=== PATIENT | female | born 1975 | race Caucasian/White ===

== ENCOUNTER 2017-07-14 13:42 | Emergency (ER) | payer MEDICARE ==
[~2017-07-14] VITALS: Ht 167.6 cm; Wt 63.5 kg
[~2017-07-14 13:42] MED LIST: ATIVAN0.5 MG ORAL; DIPHENHYDRAMINE25 M1 ORAL; NITROFURANTOIN100 M2 ORAL; PROZAC10 MG ORAL; TRAMADOL HCL50 MG ORAL; XOPENEX HFA15 GM IH
[2017-07-14 14:42] LABS: APPEARANCE,URINE CLEAR; KETONES,URINE NEGATIVE (NEGATIVE); LEUKOCYTE ESTERASE ,URINE NEGATIVE (NEGATIVE); NITRITE,URINE NEGATIVE (NEGATIVE); PH,URINE 7 (4.5-8.0); PROTEIN,URINE NEGATIVE (NEGATIVE); UROBILINOGEN,URINE NORMAL MG/DL (0.0-1.0)
[2017-07-14] MEDS ORDERED: BENADRYL25 MG ORAL (14:54)
[2017-07-14] MEDS ORDERED: PREDNISONE20 MG ORAL (14:54)
[2017-07-14] MEDS ORDERED: PROZAC10 MG ORAL (14:54)
[2017-07-14 15:10] VITALS: BP 110/72
--- NOTE | 2017-07-14 22:52 | Emergency Room Report ---
History of Present Illness General Chief Complaint: Allergic Reaction Source: Patient Present Illness HPI The patient is a 41-year-old female presenting for medication refill and possible allergic reaction. She states that she was taking Bactrim for a UTI and finished a course. She then began to develop redness and itching on her skin 2 days ago. She took Benadryl which did help. She denies any known allergy to Bactrim or sulfa. She denies any pain. She is asking for refill of Prozac as she has not been able to follow up with her primary doctor or psychiatrist. She has been out of this medication for 2 days. She denies any other symptoms Allergies: Coded Allergies: IBUPROFEN (Verified Allergy, Mild, 01/05/14) LIGHTHEADNESS ASPIRIN (Verified Allergy, Unknown, 07/14/17) SULFAMETHOXAZOLE (Verified Allergy, Unknown, 07/14/17) TRIMETHOPRIM (Verified Allergy, Unknown, 07/14/17) Patient History Past Medical History: see triage record Pertinent Family History: none Last Menstrual Period: 06/30/2017 Reviewed Nursing Documentation: PMH: Agreed, PSxH: Agreed Nursing Documentation-PMH Past Medical History: No History, Except For Hx Cardiac Problems: No Hx Hypertension: No Hx Pacemaker: No Hx Asthma: No Hx COPD: No Hx Diabetes: Yes - REACTIVE HYPOGLYCEMIA Hx Cancer: Yes - SKIN CANCER Hx Gastrointestinal Problems: No Hx Dialysis: No Hx Neurological Problems: No Hx Cerebrovascular Accident: No Hx Seizures: No Review of Systems All Other Systems: negative except mentioned in HPI Physical Exam Vital Signs Date Time Temp Pulse Resp B/P (MAP) Pulse Ox O2 Delivery O2 Flow Rate FiO2 07/14/17 13:48 97.2 79 14 107/69 99 Room Air Sp02 EP Interpretation: reviewed, normal General Appearance: no apparent distress, alert, GCS 15, non-toxic Head: normocephalic, atraumatic Eyes: bilateral eye normal inspection, bilateral eye PERRL ENT: hearing grossly normal, normal pharynx, no angioedema, normal voice Neck: full range of motion, supple/symm/no masses Respiratory: chest non-tender, lungs clear, normal breath sounds, speaking full sentences Cardiovascular #1: regular rate, rhythm, no edema Gastrointestinal: normal bowel sounds, non tender, soft, non-distended, no guarding, no rebound Musculoskeletal: back normal, gait/station normal, normal range of motion, non- tender Neurologic: alert, oriented x3, responsive, motor strength/tone normal, sensory intact, speech normal Psychiatric: judgement/insight normal, memory normal, mood/affect normal, no suicidal/homicidal ideation Skin: normal color, no rash, warm/dry, well hydrated Lymphatic: no adenopathy Medical Decision Making PA Attestation Dr. Laughlin is my supervising physician. Patient management was discussed with my supervising physician Diagnostic Impression: Primary Impression: Depression Qualified Codes: F32.9 - Major depressive disorder, single episode, unspecified Additional Impression: Medication reaction Qualified Codes: T88.7XXA - Unspecified adverse effect of drug or medicament, initial encounter ER Course The patient is a 41-year-old female presenting for medication refill and possible allergic reaction DDx considered include: allergic reaction, anaphylaxis, anxiety, depression, among others PE: Vitals stable. NAD HEENT unremarkable. Oropharynx patent. No angioedema. Lungs CTA bilat RRR Skin warm and dry. No erythema. No urticaria. No lesions seen. The patient is given her refill of prozac and will be treated with benadryl and prednisone. ER precautions given Last Vital Signs Date Time Temp Pulse Resp B/P (MAP) Pulse Ox O2 Delivery O2 Flow Rate FiO2 07/14/17 15:10 98.2 84 20 110/72 96 Room Air Status: improved Disposition: HOME, SELF-CARE Condition: Improved Scripts Prednisone* (PREDNISONE*) 20 Mg Tablet 20 MG ORAL DAILY, #5 TAB 0 Refills Prov: TERZIAN,LIYAH P.A. 07/14/17 Diphenhydramine Hcl* (BENADRYL*) 25 Mg Capsule 25 MG ORAL Q6H Y for Itching, #20 CAP Prov: TERZIAN,LIYAH P.A. 07/14/17 Fluoxetine Hcl* (PROZAC*) 10 Mg Capsule 10 MG ORAL DAILY, #30 CAP Prov: TERZIAN,LIYAH P.A. 07/14/17 Referrals: NOT CHOSEN [facility]/MD,REFERRING (PCP) Patient Instructions: Drug Allergy Additional Instructions: I discussed my findings with the patient. All questions and concerns have been answered. Treatment and medication compliance have been addressed. I advised the patient that they need to follow up with PMD in 3-5 days. Return to ED if symptoms worsen, new symptoms arise, or if needed for any reason. Patient verbalized understanding of discharge instructions. LIYAH ARAYA. Jul 14, 2017 22:52
== END 2017-07-14 15:10 | disposition home or self-care (01) ==
LOC: EMR 14:23
DX: L29.9 Pruritus, unspecified (principal); T37.0X5A Adverse effect of sulfonamides, initial encounter; E11.9 Type 2 diabetes mellitus without complications; Z88.6 Allergy status to analgesic agent; Z85.828 Personal history of other malignant neoplasm of skin
CPT/HCPCS: 81003; 81025; 99284

== ENCOUNTER 2018-02-20 21:18 | Emergency (ER) | payer MEDICARE, OTHER ==
[~2018-02-20] VITALS: Ht 167.6 cm; Wt 63.5 kg
[~2018-02-20 21:18] MED LIST changes: +BENADRYL25 MG ORAL; +PREDNISONE20 MG ORAL
[2018-02-20] MEDS ORDERED: ARMOUR THYROID30 MG ORAL (21:27)
[2018-02-20 21:30] VITALS: BP 123/78
[2018-02-20 22:13] VITALS: BP 0/0
--- NOTE | 2018-02-21 05:03 | Emergency Room Report ---
History of Present Illness General Chief Complaint: Female Urogenital Problems Source: Patient Present Illness HPI 42-year-old female presents ED for evaluation. Complaining of burning urination for the last 2 weeks. Concerned about STD. Denies any discharge. denies any fevers or chills. Denies flank pain. No other aggravating relieving factors. Denies any other associated symptoms Allergies: Coded Allergies: IBUPROFEN (Verified Allergy, Mild, 01/05/14) LIGHTHEADNESS ASPIRIN (Verified Allergy, Unknown, 07/14/17) SULFAMETHOXAZOLE (Verified Allergy, Unknown, 07/14/17) TRIMETHOPRIM (Verified Allergy, Unknown, 07/14/17) Patient History Past Medical History: none Past Surgical History: none Pertinent Family History: none Social History: Denies: smoking, alcohol use, drug use Last Menstrual Period: 02/06/18 Now: No Immunizations: UTD Reviewed Nursing Documentation: PMH: Agreed; PSxH: Agreed Nursing Documentation-PMH Hx Hypertension: No Hx Pacemaker: No Hx Asthma: No Hx COPD: No Hx Diabetes: Yes - REACTIVE HYPOGLYCEMIA Hx Cancer: Yes - SKIN CANCER Hx Gastrointestinal Problems: No Hx Dialysis: No Hx Neurological Problems: No Hx Cerebrovascular Accident: No Hx Seizures: No Review of Systems All Other Systems: negative except mentioned in HPI Physical Exam Vital Signs Date Time Temp Pulse Resp B/P (MAP) Pulse Ox O2 Delivery O2 Flow Rate FiO2 02/20/18 21:23 98.2 95 15 123/78 97 Room Air 98.2 Sp02 EP Interpretation: reviewed, normal General Appearance: no apparent distress, alert, GCS 15, non-toxic Head: normocephalic, atraumatic Eyes: bilateral eye normal inspection, bilateral eye PERRL ENT: hearing grossly normal, normal pharynx, no angioedema, normal voice Neck: full range of motion, supple/symm/no masses Respiratory: chest non-tender, lungs clear, normal breath sounds, speaking full sentences Cardiovascular #1: regular rate, rhythm, no edema Cardiovascular #2: 2+ carotid (R), 2+ carotid (L), 2+ radial (R), 2+ radial (L) , 2+ dorsalis pedis (R), 2+ dorsalis pedis (L) Gastrointestinal: normal bowel sounds, non tender, soft, non-distended, no guarding, no rebound Rectal: deferred Genitourinary: normal inspection, no CVA tenderness Musculoskeletal: back normal, gait/station normal, normal range of motion, non- tender Neurologic: alert, oriented x3, responsive, motor strength/tone normal, sensory intact, speech normal Psychiatric: judgement/insight normal, memory normal, mood/affect normal, no suicidal/homicidal ideation Reflexes: 3+ bicep (R), 3+ bicep (L), 3+ tricep (R), 3+ tricep (L), 3+ knee (R) , 3+ knee (L) Skin: normal color, no rash, warm/dry, well hydrated Lymphatic: no adenopathy Medical Decision Making Diagnostic Impression: Primary Impression: Dysuria ER Course Hospital Course 42-year-old female presents ED with dysuria. history of unprotected sex Differential diagnoses include: trichimonas, gonorrhea, chlamydia Clinical course Patient placed on stretcher. After initial history and physical I discussed that we can treat patient clinically for STI. However patient does need to follow-up with STD clinics for official testing Patient states she prefers to wait for treatment until she gets tested. States she will go to clinic today. Is refusing treatment at this time. Diagnosis - dysuria Stable and discharged home. Instructed to followup with PMD. Return to ED if symptoms recur or worsen Last Vital Signs Date Time Temp Pulse Resp B/P (MAP) Pulse Ox O2 Delivery O2 Flow Rate FiO2 02/20/18 22:13 0/0 02/20/18 21:30 98.2 91 15 97 Room Air 98.2 Status: improved Disposition: HOME, SELF-CARE Condition: Stable Referrals: NOT CHOSEN [facility]/,REFERRING (PCP) Patient Instructions: VaginiEran Vora MD Feb 21, 2018 05:03
== END 2018-02-20 22:13 | disposition home or self-care (01) ==
LOC: EMR 21:40
DX: R30.0 Dysuria (principal); E11.9 Type 2 diabetes mellitus without complications; Z85.828 Personal history of other malignant neoplasm of skin; Z88.2 Allergy status to sulfonamides; Z88.6 Allergy status to analgesic agent
CPT/HCPCS: 99282

== ENCOUNTER 2019-02-20 11:08 | Emergency (ER) | payer OTHER ==
[~2019-02-20] VITALS: Ht 167.6 cm; Wt 59.0 kg
[~2019-02-20 11:08] MED LIST changes: +ARMOUR THYROID30 MG ORAL
--- NOTE | 2019-02-20 11:24 | NUR ---
ED Nurse Note: PT FROM HOME CAME IN DUE TO SORE THROAT, CHILLS AND 3 EPISODES OF VOMITING YESTERDAY. DENIES ABD PAIN. NO S/S OF DEHYDRATION. AAO X4, AND AMBULATORY.
--- NOTE | 2019-02-20 12:02 | NUR ---
ED Nurse Note: COLLECTED URINE THEN SENT.
[2019-02-20 12:07] LABS: APPEARANCE,URINE CLEAR; BILIRUBIN, URINE NEGATIVE (NEGATIVE); GLUCOSE, URINE (UA) NEGATIVE (NEGATIVE); KETONES,URINE NEGATIVE (NEGATIVE); LEUKOCYTE ESTERASE ,URINE 1+ (NEGATIVE); NITRITE,URINE NEGATIVE (NEGATIVE); PH,URINE 6 (4.5-8.0); PROTEIN,URINE 1+ (NEGATIVE); UROBILINOGEN,URINE 1 MG/DL (0.0-1.0)
[2019-02-20 12:15] LABS: COLOR,URINE YELLOW
[2019-02-20] MEDS ORDERED: Lidocaine 2% Visc 15ml soln ORAL ONE (12:30)
[2019-02-20] MEDS ORDERED: ZITHROMAX250 MG ORAL (12:32)
[2019-02-20] MEDS ORDERED: IBUPROFEN600 MG ORAL (12:32)
[2019-02-20 12:58] VITALS: BP 120/80
[2019-02-20 12:59] VITALS: BP 91/56
--- NOTE | 2019-02-20 13:02 | NUR ---
discharged home with instruction and rx folloe up with pmd verbalize understanding of the aci
[2019-02-21] MEDS ORDERED: LEVOTHYROXINE75 MCG ORAL (11:31)
[2019-02-21] MEDS ORDERED: COLACE100 MG ORAL (12:11)
[2019-02-21] MEDS ORDERED: ANUSOL-HC25 MG RECTAL (12:11)
--- NOTE | 2019-02-26 21:59 | Emergency Room Report ---
History of Present Illness General Chief Complaint: Vomiting Source: Medical Record Present Illness Allergies: Coded Allergies: PENICILLINS (Verified Allergy, Unknown, rash, 02/20/19) SULFAMETHOXAZOLE (Verified Allergy, Unknown, 07/14/17) TRIMETHOPRIM (Verified Allergy, Unknown, 07/14/17) Patient History Last Menstrual Period: 02/04/19 Nursing Documentation-PM Past Medical History: No History, Except For Hx Hypertension: No Hx Pacemaker: No Hx Asthma: No Hx COPD: No Hx Diabetes: Yes - REACTIVE HYPOGLYCEMIA Hx Cancer: Yes - SKIN CANCER Hx Gastrointestinal Problems: No Hx Dialysis: No Hx Neurological Problems: No Hx Cerebrovascular Accident: No Hx Seizures: No Medical Decision Making Diagnostic Impression: Primary Impression: Tonsillitis with exudate Status: improved Disposition: HOME, SELF-CARE Condition: Stable Scripts Azithromycin* (ZITHROMAX*) 250 Mg Tablet 250 MG ORAL DAILY, #6 TAB 0 Refills Take two tables once daily for 1 day, then one tablet once daily for 4 days. Prov: Doug Laughlin MD 02/20/19 Ibuprofen* (MOTRIN*) 600 Mg Tablet 600 MG ORAL Q8H PRN for For Pain, #30 TAB 0 Refills Prov: Doug Laughlin MD 02/20/19 Referrals: NON PHYSICIAN (PCP) Patient Instructions: Tonsillitis, [id number] Additional Instructions: Follow up with your doctor in 2-3 days. Return if worse. Doug Laughlin MD Feb 26, 2019 21:59
== END 2019-02-20 13:03 | disposition home or self-care (01) ==
LOC: EMR 11:58
DX: J03.90 Acute tonsillitis, unspecified (principal); Z85.828 Personal history of other malignant neoplasm of skin; Z88.0 Allergy status to penicillin; Z88.2 Allergy status to sulfonamides; Z88.8 Allergy status to other drugs, medicaments and biological substances
CPT/HCPCS: 81003; 81025; 99283

== ENCOUNTER 2019-02-21 11:10 | Emergency (ER) | payer OTHER ==
[~2019-02-21] VITALS: Ht 167.6 cm; Wt 61.2 kg
[~2019-02-21 11:10] MED LIST changes: +IBUPROFEN600 MG ORAL; +ZITHROMAX250 MG ORAL
[2019-02-21] MEDS ORDERED: LEVOTHYROXINE75 MCG ORAL (11:31)
--- NOTE | 2019-02-21 12:00 | NUR ---
ED Nurse Note: no active rectal bleeding noted
--- NOTE | 2019-02-21 12:07 | NUR ---
ED Nurse Note: rectal exam done by md with rn assist. pt tolerates well
[2019-02-21 12:10] VITALS: BP 105/65
--- NOTE | 2019-02-21 12:10 | Emergency Room Report ---
History of Present Illness General Chief Complaint: General Complaint Source: Patient Present Illness HPI Male with recent diagnosis of pharyngitis yesterday returns to ED today for rectal bleeding, she reports she had a painful BM in which she strained, noticed bright red blood mixed with normal brown stool. She denies abdominal pain, reports her rectal pain is now resolved but it hurts to push out the stool , she reports she had a history of hemorrhoids and had to have been banded in the past. She reports is not on any blood thinners, denies abdominal pain, nausea, vomiting. Her only other complaint is her throat still hurts somewhat when she swallows. Allergies: Coded Allergies: PENICILLINS (Verified Allergy, Unknown, rash, 02/20/19) SULFAMETHOXAZOLE (Verified Allergy, Unknown, 07/14/17) TRIMETHOPRIM (Verified Allergy, Unknown, 07/14/17) Patient History Past Medical History: see triage record Last Menstrual Period: 02/04/2019 Reviewed Nursing Documentation: PMH: Agreed; PSxH: Agreed Nursing Documentation-PMH Past Medical History: No History, Except For Hx Hypertension: No Hx Pacemaker: No Hx Asthma: No Hx COPD: No Hx Diabetes: Yes - REACTIVE HYPOGLYCEMIA Hx Cancer: Yes - SKIN CANCER Hx Gastrointestinal Problems: No Hx Dialysis: No History Of Psychiatric Problem: Yes - depression Hx Neurological Problems: No Hx Cerebrovascular Accident: No Hx Seizures: No Review of Systems All Other Systems: negative except mentioned in HPI Physical Exam Vital Signs Date Time Temp Pulse Resp B/P (MAP) Pulse Ox O2 Delivery O2 Flow Rate FiO2 02/21/19 11:27 97.9 76 18 105/65 (78) 99 Room Air Sp02 EP Interpretation: reviewed, normal General Appearance: no apparent distress, alert, non-toxic Head: normocephalic Eyes: bilateral eye normal inspection, bilateral eye PERRL, bilateral eye EOMI ENT: normal ENT inspection, hearing grossly normal, normal pharynx, no angioedema, normal voice, moist mucus membranes Neck: normal inspection, full range of motion, supple, supple/symm/no masses Respiratory: chest non-tender, lungs clear, normal breath sounds, chest symmetrical, palpation of chest normal Cardiovascular #1: normal peripheral pulses, regular rate, rhythm Cardiovascular #2: 2+ radial (R), 2+ radial (L) Gastrointestinal: normal inspection, non tender, soft, no mass, no guarding, no rebound Rectal: normal exam - Done with Chaparrita from the nursing staff at the bedside, normal rectal tone, heme positive stool, hemorrhoids, other - No masses, 6 o' clock position nonthrombosed hemorrhoid noted, brown stool, no gross blood, but positive Hemoccult testing Genitourinary: normal inspection, no CVA tenderness Musculoskeletal: back normal, gait/station normal, normal range of motion, non- tender, no calf tenderness Neurologic: alert, responsive, back grinder III-XII nml as tested, motor strength/tone normal, sensory intact, speech normal Psychiatric: judgement/insight normal, memory normal, mood/affect normal, anxious Skin: warm/dry Lymphatic: no adenopathy Medical Decision Making Diagnostic Impression: Primary Impression: Rectal bleeding ER Course Patient had one episode of rectal bleeding, no active bleeding now, will discharge with instructions to follow-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 Last Vital Signs Date Time Temp Pulse Resp B/P (MAP) Pulse Ox O2 Delivery O2 Flow Rate FiO2 02/21/19 11:27 97.9 76 18 105/65 (78) 99 Room Air JEFFREY TRIPLETT M.D Feb 21, 2019 12:09
[2019-02-21] MEDS ORDERED: COLACE100 MG ORAL (12:11)
[2019-02-21] MEDS ORDERED: ANUSOL-HC25 MG RECTAL (12:11)
--- NOTE | 2019-02-21 12:24 | NUR ---
ER DISCHARGE NOTE: Patient is cleared to be discharged per ERMD, pt is aox4, on room air, with stable vital signs. pt was given dc and prescription instructions, pt was able to verbalize understanding, pt id band removed. pt is able to ambulate with steady gait. pt took all belongings.
[2019-02-21 12:25] VITALS: BP 105/65
== END 2019-02-21 12:26 | disposition home or self-care (01) ==
LOC: EMR 12:11
DX: K62.5 Hemorrhage of anus and rectum (principal); E11.9 Type 2 diabetes mellitus without complications; Z85.828 Personal history of other malignant neoplasm of skin; F32.9 Major depressive disorder, single episode, unspecified
CPT/HCPCS: 99281